=== PATIENT | male | born 1965 | race Caucasian/White ===

== ENCOUNTER 2018-10-29 16:02 | Emergency (ER) | payer BC, OTHER ==
--- NOTE | 2018-10-29 17:12 | ER Document Report ---
Addendum entered and electronically signed by GIANA COOK PA-C 10/30/18 00:46: Discharge - Discharge Clinical Impression: Conjunctivitis Upper respiratory infection Qualifiers: URI type: unspecified URI Qualified Code(s): J06.9 - Acute upper respiratory infection, unspecified Condition: Good Disposition: HOME, SELF-CARE Instructions: Conjunctivitis ([facility]), Upper Respiratory Infection, Infant or Child ([facility]) Prescriptions: Hydrocodone Bit/Homatropine [Hycodan Syrup 5-1.5 mg/5 ml Ud Cup] 5 ml PO Q4HP PRN #120 ml PRN Reason: Phenylephrine HCl/Cod/Prometh [Phenergan Vc-Codeine Syrup] 5 ml PO Q4HP PRN #120 ml PRN Reason: Amoxicillin Trihydrate [Amoxil 875 mg Tablet] 1 tab PO BID #20 tablet Polymyxin B Sulfate/Tmp [Polytrim Oph Soln 10 ml] 1 drop OU Q4H #1 bottle Forms: Elevated Blood Pressure Referrals: [facility] [Provider Group] - Follow up in 3-5 days Addendum entered and electronically signed by GIANA COOK PA-C 10/29/18 17:52: Discharge - Discharge Clinical Impression: Conjunctivitis Upper respiratory infection Qualifiers: URI type: unspecified URI Qualified Code(s): J06.9 - Acute upper respiratory infection, unspecified Condition: Good Disposition: HOME, SELF-CARE Instructions: Conjunctivitis ([facility]), Upper Respiratory Infection, or Child ([facility]) Prescriptions: Phenylephrine HCl/Cod/Prometh [Phenergan Vc-Codeine Syrup] 5 ml PO Q4HP PRN #120 ml PRN Reason: Amoxicillin Trihydrate [Amoxil 875 mg Tablet] 1 tab PO BID #20 tablet Polymyxin B Sulfate/Tmp [Polytrim Oph Soln 10 ml] 1 drop OU Q4H #1 bottle Forms: Elevated Blood Pressure Referrals: [facility] [Provider Group] - Follow up in 3-5 days Original Note: ED General - General Chief Complaint: Flu Symptoms Stated Complaint: FLU LIKE SYMPTOMS Time Seen by Provider: 10/29/18 16:59 Mode of Arrival: Ambulatory Information source: Patient TRAVEL OUTSIDE OF THE [place] IN LAST 30 DAYS: No - HPI Patient complains to provider of: Cold cough, sinus and chest congestion, thick productive sputum with cough Onset: Other - Almost 2 weeks ago Onset/Duration: Gradual, Persistent Quality of pain: No pain Severity: None Pain Level: Denies Associated symptoms: denies: Chills, Fever Exacerbated by: Denies Relieved by: Denies Similar symptoms previously: No Recently seen / treated by doctor: No Notes: 53-year-old male with history of hypertension here with almost 2 weeks of bad cough, chest and sinus congestion, green mucus with cough, runny nose, and malaise. Was seen in a walk-in clinic. Had a negative flu swab. Was told to take Coricidin high blood pressure as well as was given a metered-dose inhaler. Symptoms seem to be persistent not getting any better. Patient is not a smoker. No history of asthma or COPD. - Related Data Allergies/Adverse Reactions: No Known Allergies Allergy (Unverified 10/29/18 16:13) Past Medical History - General Information source: Patient - Social History Smoking Status: Never Smoker Family History: Reviewed & Not Pertinent Review of Systems - Review of Systems Notes: Constitutional: No fevers. No chills. EENT: No eye redness. No eye pain. No ear pain. No sore throat. Positive sinus pressure Cardiovascular: No chest pain. No palpitations. Respiratory: Positive productive cough. No shortness of breath. No respiratory distress. Gastrointestinal: No abdominal pain. No nausea, vomiting, or diarrhea. Genitourinary: Atraumatic. No lesions. No pain. No discharge. Musculoskeletal: Atraumatic. No swelling. No deformities. Skin: No rash or lesions. Lymphatic: No swollen lymph nodes. Neurologic: No headache. No syncope. Psychiatric: No suicidal or homicidal ideation. Physical Exam - Vital signs Vitals: Temp Pulse Resp BP Pulse Ox 99.5 F 88 18 139/82 H 97 10/29/18 16:15 10/29/18 16:15 10/29/18 16:15 10/29/18 16:15 10/29/18 16:15 - Notes Notes: General: Well-developed, well-nourished. In no acute distress. Non-toxic appearing. Cardiac: Well-perfused. Regular rate and rhythm. No murmurs, rubs, or gallops. Pulmonary: No respiratory distress. No cyanosis. Bilateral lung fiels are clear to auscultation. Abdominal: Non-distended. Non-rigid. Bowels sounds are present in all four quadrants. No guarding or rebound. HEENT: Head is atraumatic. Right eye conjunctive a 2+ injected.. No tearing. PERRL. EOMI. Orbits atraumatic. No periorbital swelling or erythema. Oropharynx is without erythema, swelling, or exudates. Neck: Supple. No adenopathy. No meningismus. Dermatologic: Warm with good turgor. No rash. Atraumatic. Chest: Atraumatic. No chest wall tenderness to palpation. Musculoskeletal: Moves all extremities well. No range of motion deficits. no muscular or joint tenderness. No paraspinal muscle tenderness. no midline spinal tenderness or step-off. Genitourinary: Examination deferred Neurologic: No gross neurologic deficits. Psychiatric: Normal mood. Course - Vital Signs Vital signs: Temp Pulse Resp BP Pulse Ox 99.5 F 88 18 139/82 H 97 10/29/18 16:15 10/29/18 16:15 10/29/18 16:15 10/29/18 16:15 10/29/18 16:15 Discharge - Discharge Clinical Impression: Conjunctivitis Upper respiratory infection Qualifiers: URI type: unspecified URI Qualified Code(s): J06.9 - Acute upper respiratory infection, unspecified Condition: Good Disposition: HOME, SELF-CARE Instructions: Upper Respiratory Infection, Infant or Child ([facility]), Conjunctivitis ([facility]) Prescriptions: Phenylephrine HCl/Cod/Prometh [Phenergan Vc-Codeine Syrup] 5 ml PO Q4HP PRN #120 ml PRN Reason: Amoxicillin Trihydrate [Amoxil 875 mg Tablet] 1 tab PO BID #20 tablet Forms: Elevated Blood Pressure Referrals: [facility] [Provider Group] - Follow up in 3-5 days
[2018-10-29 17:52] VITALS: BP 145/82
== END 2018-10-29 17:52 | disposition home or self-care (01) ==
LOC: EDSEX → ER 16:02
DX: J06.9 Acute upper respiratory infection, unspecified (principal); H10.9 Unspecified conjunctivitis; R05 Cough; R09.81 Nasal congestion; R09.89 Other specified symptoms and signs involving the circulatory and respiratory systems; I10 Essential (primary) hypertension; R53.81 Other malaise
CPT/HCPCS: 99283